=== PATIENT | female | born 1955 | race African-American/Black ===

== ENCOUNTER 2019-01-11 08:21 | Emergency (ER) | payer OTHER ==
--- OUTSIDE RECORDS SUMMARY | 2019-01-11 08:48 | XMS REPORT ---
:1955 [facility] Address [address] [place] [address] Care Team Providers Name Role Phone Unavailable Unavailable Unavailable Payers Payer Name Policy Type Policy Number Effective Date Expiration Date Problems This patient has no known problems. Allergies, Adverse Reactions, Alerts Allergy Allergy Status Severity Reaction(s) Onset Inactive Treating Comments Name Type Date Date Clinician No Known DA Active U 2018-07 Allergies -11 00:00:0 0 Medications This patient has no known medications.
--- OUTSIDE RECORDS SUMMARY | 2019-01-11 08:48 | XMS REPORT | Clinical Summary ---
:1955 Author Organization [facility] Address [address] [place] [id number] Care Team Providers Name Role Phone Franki Styles MD Primary Care Provider Unavailable Allergies No Known Allergies Medications Medication Sig Dispensed Refills Start Date End Date Status ALPRAZolam (XANAX) 1 MG TK 1 T PO TID 3 06/16/2016 Active tablet PRA cyclobenzaprine TK 1 T PO BID 0 06/18/2016 Active (FLEXERIL) 5 mg tablet fluticasone (FLONASE) 50 SPRAY 1 SPRAY 2 06/08/2016 Active mcg/actuation nasal IEN BID spray gabapentin (NEURONTIN) TK 1 C PO TID 0 06/18/2016 Active 400 mg capsule HYDROcodone-acetaminophe TK 1 T PO TID 0 06/18/2016 Active n (NORCO) 10-325 mg per tablet losartan (COZAAR) 100 MG TK 1 T PO QD 1 06/16/2016 Active tablet multivitamin capsule Take 1 capsule 0 Active by mouth daily. atorvastatin (LIPITOR) Take 20 mg by 0 Active 20 MG tablet mouth daily. Default OP ins Active Problems No known active problems Family History Medical History Relation Name Comments Hypertension Sister Relation Name Status Comments Sister Social History Tobacco Use Types Packs/Day Years Used Date Never Smoker Alcohol Use Drinks/Week oz/Week Comments Yes 1 Cans of beer 0.6 occasionally Sex Assigned at Date Recorded Not on file Job Start Date Occupation Industry Not on file Not on file Not on file Travel History Travel Start Travel End No recent travel history available. Last Filed Vital Signs Not on file Plan of Treatment Health Maintenance Due Date Last Done Comments BREAST CANCER SCREENING 2005 COLONOSCOPY SCREENING 2005 SHINGLES VACCINES (#1) 2005 INFLUENZA VACCINE 02/03/2019 Results Not on fileafter 01/10/2018 Insurance Payer Benefit Plan / Subscriber ID Effective Dates Phone Address Type Group UHC MEDICARE [employer] xxxxxxxxx 2016-Present HMO MEDICARE MEDICAID MEDICAID xxxxxxxxx 2011-Present Medicaid Advance Directives Patient has advance care planning documents on file. For more information, please contact:Thee Hunter[address] [place] [address]
--- NOTE | 2019-01-11 11:00 | EDPHYS ---
Physician Documentation [facility] Name: Sachi Roberts Age: 63 yrs Sex: Female : 1955 Arrival Date: 01/11/2019 Time: 08:23 Bed 14 Private MD: Franki Styles E ED Physician Nathaniel Haskins HPI: 01/11 08:35 This 63 yrs old Black Female presents to ER via Ambulatory with complaints of Foot cp Problem. 08:35 The patient's rash thought to be caused by an unknown cause. The rash is located on the cp right foot and left foot. Onset: The symptoms/episode began/occurred 3 week(s) ago. Associated signs and symptoms: Pertinent positives: itching, Pertinent negatives: fever. Severity of symptoms: in the emergency department the symptoms are worse. Historical: - Allergies: 08:29 No Known Allergies; rb1 - Home Meds: 08:29 Alprazolam Oral [Active]; hydrocodone-acetaminophen 7.5-325 mg Oral tab 1 tab every 6 rb1 hours [Active]; gabapentin 300 mg oral cap 1 cap 3 times per day [Active]; Fluconazole Oral [Active]; - PMHx: 08:29 Anxiety; Hypertension; chronic back pain; rb1 - PSHx: 08:29 Bilateral knee replacements; rb1 - Immunization history:: Adult Immunizations up to date. - Social history:: Smoking status: Patient/guardian denies using tobacco. - Ebola Screening: : Patient negative for fever greater than or equal to 101.5 degrees Fahrenheit, and additional compatible Ebola Virus Disease symptoms. ROS: 08:40 Skin: Positive for rash, of the right foot and left foot. cp 08:40 Constitutional: Negative for body aches, chills, fever. cp 08:40 ENT: Negative for drainage from ear(s), ear pain, sore throat, difficulty swallowing, difficulty handling secretions. 08:40 Respiratory: Negative for cough. 08:40 Abdomen/GI: Negative for abdominal pain. 08:40 All other systems are negative. Exam: 08:45 Constitutional: The patient appears in no acute distress, alert, awake, non-toxic, well cp developed, well nourished. 08:45 Head/Face: Normocephalic, atraumatic. cp 08:45 Skin: cellulitis, is not appreciated, rash a moderate rash is noted, rash can be described as plaque-like, scale, on the right foot and left foot. Vital Signs: 08:29 BP 146 / 73; Pulse 90; Resp 19; Temp 98.3(O); Pulse Ox 100% on R/A; Weight 112.04 kg rb1 (R); Height 5 ft. 4 in. (162.56 cm) (R); Pain 4/10; 08:29 Body Mass Index 42.40 (112.04 kg, 162.56 cm) rb1 MDM: 08:31 Patient medically screened. [facility] 08:50 Differential diagnosis: impetigo, cellulitis, tinea. 08:51 Data reviewed: vital signs, nurses notes. 08:51 Counseling: I had a detailed discussion with the patient and/or guardian regarding: the cp historical points, exam findings, and any diagnostic results supporting the discharge/admit diagnosis, to return to the emergency department if symptoms worsen or persist or if there are any questions or concerns that arise at home. Administered Medications: No medications were administered Disposition: 09:15 Chart complete. cp Disposition: 01/11/19 08:52 Discharged to Home. Impression: Tinea pedis. - Condition is Stable. - Discharge Instructions: Athlete's Foot. - Prescriptions for Clotrimazole 1 % Topical Cream - Apply to affected area 1 application by TOPICAL route every 12 hours; 30 gram. Fluconazole 200 mg Oral Tablet - take 1 tablet by ORAL route once wkly for 5 days; 5 tablet. - Medication Reconciliation Form, Thank You Letter, Antibiotic Education, Prescription Opioid Use form. - Follow up: Franki Styles MD; When: 1 week; Reason: no improvement. Follow up: Franki Styles MD; When: 10 - 14 days; Reason: no improvement. - Problem is new. - Symptoms are unchanged. Addendum: 01/12/2019 16:29 Co-signature as Attending Physician, Nathaniel Haskins MD I agree with the assessment and c vasquez plan of care. Signatures: Nathaniel Haskins MD MD cha Page, Corey, PA PA cp Margot Dewey, PHILIP RN rb1 Corrections: (The following items were deleted from the chart) 01/11 08:55 08:52 01/11/2019 08:52 Discharged to Home. Impression: Tinea pedis. Condition is cp Stable. Forms are Medication Reconciliation Form, Thank You Letter, Antibiotic Education, Prescription Opioid Use. Follow up: Franki Styles; When: 1 week; Reason: no improvement. Problem is new. Symptoms are unchanged. cp 09:01 08:55 01/11/2019 08:52 Discharged to Home. Impression: Tinea pedis. Condition is rb1 Stable. Discharge Instructions: Athlete's Foot. Prescriptions for Clotrimazole 1 % Topical Cream - Apply to affected area 1 application by TOPICAL route every 12 hours; 30 gram, Fluconazole 200 mg Oral Tablet - take 1 tablet by ORAL route once wkly for 5 days; 5 tablet. and Forms are Medication Reconciliation Form, Thank You Letter, Antibiotic Education, Prescription Opioid Use. Follow up: Franki Styles; When: 10 - 14 days; Reason: no improvement. Problem is new. Symptoms are unchanged. cp
--- NOTE | 2019-01-11 11:01 | ER ---
Nurse's Notes [facility] Name: Sachi Roberts Age: 63 yrs Sex: Female : 1955 Arrival Date: 01/11/2019 Time: 08:23 Bed 14 Private MD: Franki Styles E Diagnosis: Tinea pedis Presentation: 01/11 08:29 Presenting complaint: Patient states: Rash on bilateral feet, burning and itching x 3 rb1 weeks. 08:29 Method Of Arrival: Ambulatory rb1 08:29 Transition of care: patient was not received from another setting of care. Onset of rb1 symptoms is unknown. Risk Assessment: Do you want to hurt yourself or someone else? Patient reports no desire to harm self or others. Initial Sepsis Screen: Does the patient meet any 2 criteria? No. Patient's initial sepsis screen is negative. Does the patient have a suspected source of infection? No. Patient's initial sepsis screen is negative. Care prior to arrival: None. 08:29 Acuity: DIDIER 3 rb1 Triage Assessment: 08:29 General: Appears in no apparent distress. comfortable, Behavior is calm, cooperative. rb1 Pain: Complains of pain in bilateral feet Pain currently is 4 out of 10 on a pain scale. Quality of pain is described as burning, Pain began x 3 weeks. Neuro: Level of Consciousness is awake, alert, obeys commands, Oriented to person, place, time, situation. Cardiovascular: Capillary refill < 3 seconds is brisk in bilateral fingers. Respiratory: Airway is patent Respiratory effort is even, unlabored, Respiratory pattern is regular, symmetrical. GI: No signs and/or symptoms were reported involving the gastrointestinal system. : No signs and/or symptoms were reported regarding the genitourinary system. Derm: Rash noted that is itchy, on bilateral feet. Musculoskeletal: Range of motion: intact in all extremities, Swelling present in bilateral feet. Historical: - Allergies: : No Known Allergies; rb1 - Home Meds: : Alprazolam Oral [Active]; hydrocodone-acetaminophen 7.5-325 mg Oral tab 1 tab every 6 rb1 hours [Active]; gabapentin 300 mg oral cap 1 cap 3 times per day [Active]; Fluconazole Oral [Active]; - PMHx: 08: Anxiety; Hypertension; chronic back pain; rb1 - PSHx: 08:29 Bilateral knee replacements; rb1 - Immunization history:: Adult Immunizations up to date. - Social history:: Smoking status: Patient/guardian denies using tobacco. - Ebola Screening: : Patient negative for fever greater than or equal to 101.5 degrees Fahrenheit, and additional compatible Ebola Virus Disease symptoms. Screenin:29 Abuse screen: Denies threats or abuse. Nutritional screening: No deficits noted. rb1 Tuberculosis screening: No symptoms or risk factors identified. Fall Risk No fall in past 12 months (0 pts). Secondary diagnosis (15 points) impaired mobility, No IV (0 pts). Ambulatory Aid- Crutches/Cane/Walker (15 pts). Gait- Impaired (20 pts.). Mental Status- Oriented to own ability (0 pts). Total Starr Fall Scale indicates High Risk Score (45 or more points). Fall prevention measures have been instituted. Side Rails Up X 2 Placed Close to Nursing Station 1:1 Attendant Assigned Frequent Obs/Assessments Occuring As available patient and family educated on Fall Prevention Program and Strategies. Vital Signs: 08:29 BP 146 / 73; Pulse 90; Resp 19; Temp 98.3(O); Pulse Ox 100% on R/A; Weight 112.04 kg rb1 (R); Height 5 ft. 4 in. (162.56 cm) (R); Pain 4/10; 08:29 Body Mass Index 42.40 (112.04 kg, 162.56 cm) rb1 ED Course: 08:23 Patient arrived in ED. as 08:24 Franki Styles MD is Private Physician. as 08:29 Nathaniel Byrd PA is PHCP. cp 08:29 Nathaniel Haskins MD is Attending Physician. cp 08:29 Arm band placed on right wrist. rb1 08:29 Patient has correct armband on for positive identification. Bed in low position. Call rb1 light in reach. Side rails up X 1. Pulse ox on. NIBP on. 08:31 Margot Dewey, PHILIP is Primary Nurse. rb1 08:42 Triage completed. rb1 08:52 Franki Styles MD is Referral Physician. cp 08:55 Referral Physician role handed off by Franki Styles MD cp 08:55 Franki Styles MD is Referral Physician. cp 09:00 No provider procedures requiring assistance completed. Patient did not have IV access rb1 during this emergency room visit. Administered Medications: No medications were administered Outcome: :52 Discharge ordered by . priyank 09:00 Discharged to home ambulatory, with cane rb1 :00 Condition: stable 09:00 Discharge instructions given to patient, Instructed on discharge instructions, follow up and referral plans. medication usage, Demonstrated understanding of instructions, follow-up care, medications, Prescriptions given X 2. 09:01 Patient left the ED. rb1 Signatures: Carolina Cuellar Corey, JUANY PA Margot Kimbrough, RN RN rb1
[2019-01-11 13:08] VITALS: BP 146/73; TEMP 98.3; O2SAT 100
== END 2019-01-11 09:01 | disposition home or self-care (01) ==
LOC: ER 08:21
DX: R21 Rash and other nonspecific skin eruption (principal); F41.9 Anxiety disorder, unspecified; I10 Essential (primary) hypertension
CPT/HCPCS: 99283

== ENCOUNTER 2019-01-29 00:53 | Observation (INO) | payer OTHER ==
--- OUTSIDE RECORDS SUMMARY | 2019-01-29 00:55 | XMS REPORT ---
:1955 [facility] Address [address] [place] [address] Care Team Providers Name Role Phone Unavailable [...]
--- OUTSIDE RECORDS SUMMARY | 2019-01-29 00:55 | XMS REPORT | Clinical Summary ---
:1955 Author Organization [facility] Address [address] [place] [id number] Care Team Providers Name Role Phone Franki [...] INFLUENZA VACCINE 02/03/2019 Results Not on fileafter 01/28/2018 Insurance Payer Benefit Plan / Subscriber ID Effective Dates Phone Address Type Group UHC MEDICARE UNITED HE[employer] xxxxxxxxx 2016-Present HMO MEDICARE MEDICAID MEDICAID xxxxxxxxx 2011-Present Medicaid Advance Directives Patient has advance care planning documents on file. For more information, please contact:Thee Hunter[address] [place] [address]
[2019-01-29 02:13] LABS: Absolute Lymphocytes (CBC) 1.1 K/uL (0.7-4.9); Basophils % 0.3 % (0-1.3); Hematocrit 35.7 % (36.0-45.0); Lymphocytes % 7.6 % (15.3-44.8); MPV 10.3 fL (7.6-11.3); Protime INR 1.09; RBC Red Blood Cell Count 3.99 M/uL (3.86-4.86)
[2019-01-29 02:21] LABS: ALT/SGPT 23 U/L (12-78); AST/SGOT 18 U/L (15-37); Albumin 3.5 g/dL (3.4-5.0); Alkaline Phosphatase 122 U/L (45-117); BUN Blood Urea Nitrogen 12 mg/dL (7-18); Bicarbonate 31 mmol/L (21-32); Bilirubin Direct 0.2 mg/dL (0-0.2); Bilirubin Total 0.7 mg/dL (0.2-1.0); Glucose Level 101 mg/dL (74-106); Potassium 3.4 mmol/L (3.5-5.1); Protein, Total 8.2 g/dL (6.4-8.2); Sodium Level 137 mmol/L (136-145)
[2019-01-29] MEDS ORDERED: ONDANSETRON 4 MG/2 ML VIAL ONE (02:22)
[2019-01-29] MEDS ORDERED: NA CHLORIDE 0.9% 1,000 ML ONE (02:22)
[2019-01-29] MEDS ORDERED: MORPHINE 4 MG/ML SYR ONE (02:22)
[2019-01-29] MEDS ORDERED: NA CHLORIDE 0.9% 0 ML ONE (03:22)
[2019-01-29] MEDS ORDERED: Levofloxacin500mg IV 500 MG/100 ML BAG IV ONE (03:22)
[2019-01-29] MEDS ORDERED: WATER FOR INJ,STERILE 20 ML ONE (03:22)
[2019-01-29] MEDS ORDERED: VANCOMYCIN 1 GM/VIAL ONE (03:22)
[2019-01-29] MEDS ORDERED: NA CHLORIDE 0.9% 250 ML ONE (03:23)
--- NOTE | 2019-01-29 03:47 | ER ---
Nurse's Notes [facility] Name: Sachi Roberts Age: 63 yrs Sex: Female : 1955 Arrival Date: 01/29/2019 Time: 00:56 Bed 14 Private MD: Franki Styles E Diagnosis: Cellulitis of left lower limb Presentation: 01/29 01:13 Presenting complaint: Patient states: She has some swelling in her left foot and ankle tr5 and a headache that started about 3 days ago, but today it has been constantly hurting. She had some fungus on both of feet for about 3 weeks now that she is being treated for currently. Transition of care: patient was not received from another setting of care. Onset of symptoms was January 29, 2019. Risk Assessment: Do you want to hurt yourself or someone else? Patient reports no desire to harm self or others. Initial Sepsis Screen: Does the patient meet any 2 criteria? No. Patient's initial sepsis screen is negative. Does the patient have a suspected source of infection? No. Patient's initial sepsis screen is negative. Care prior to arrival: None. 01:13 Method Of Arrival: Wheelchair tr5 01:13 Acuity: DIDIER 3 tr5 Triage Assessment: 01:21 Headache History: The patient has had previous headaches and this one is similar to tr5 previous episodes. General: Appears in no apparent distress. uncomfortable, Behavior is calm, cooperative. General:. General: Appears. Pain: Complains of pain in forehead and left leg Pain currently is 8 out of 10 on a pain scale. Pain began 2-3 days ago. Also complains of inability to perform activities of daily living. EENT: No signs and/or symptoms were reported regarding the EENT system. Neuro: Level of Consciousness is awake, alert, Oriented to person, place, time, Frit Maker are equal bilaterally Moves all extremities. Cardiovascular: Reports None Heart tones present Bruits absent. Respiratory: Airway is patent Trachea midline Respiratory effort is even, unlabored, Respiratory pattern is regular, symmetrical, Breath sounds are clear bilaterally. GI: No signs and/or symptoms were reported involving the gastrointestinal system. : No signs and/or symptoms were reported regarding the genitourinary system. Derm: Skin is intact, Skin is dry, Skin temperature is warm. Derm:. Historical: - Home Meds: 01:21 Alprazolam Oral [Active]; fluconazole Oral [Active]; gabapentin 300 mg Oral cap 1 cap 3 tr5 times per day [Active]; hydrocodone-acetaminophen 7.5-325 mg Oral tab 1 tab every 6 hours [Active]; - PMHx: 01:21 Anxiety; Hypertension; chronic back pain; Cellulitis; tr5 - PSHx: 01: Gastric Bypass; Knee surgery; Skin Graft; tr5 - Immunization history:: Adult Immunizations up to date. - Social history:: Smoking status: Patient/guardian denies using tobacco, the patient reports quitting approximately 20 years ago. - Ebola Screening: : No symptoms or risks identified at this time. Screenin: Abuse screen: Denies threats or abuse. Nutritional screening: No deficits noted. tr5 Tuberculosis screening: No symptoms or risk factors identified. Fall Risk None identified. Assessment: :28 Reassessment: See triage. Pain: Complains of pain in forehead. Neuro:. Cardiovascular: tr5 Edema pitting to left foot, left toes, right foot and right toes. 02:43 Reassessment: Patient appears in no apparent distress at this time. Patient and/or tr5 family updated on plan of care and expected duration. Pain level reassessed. Patient is alert, oriented x 3, equal unlabored respirations, skin warm/dry/pink. 03:30 Reassessment: Patient appears in no apparent distress at this time. Patient and/or tr5 family updated on plan of care and expected duration. Pain level reassessed. Patient is alert, oriented x 3, equal unlabored respirations, skin warm/dry/pink. 03:38 Reassessment: Dr. Jones at pt's bedside explaining to pt need for admission. Pt tr5 verbalized understanding. 04:01 Reassessment: Report given to Simran PALACIOS. tr5 04:07 Reassessment: Pt AAOX4 with no signs/symptoms of distress. Pt has a 20 G IV R AC that tr5 is clean dry and intact. Pt's edema to left foot remains but patient reports improvement of pain. Pt has family at bedside. Pt and family notified of pt's room assignment and verbalized understanding of need for admission. Vital Signs: 01:27 BP 139 / 66; Pulse 100; Resp 16; Temp 98.8(O); Pulse Ox 99% on R/A; tr5 02:43 BP 110 / 56; Pulse 102; Resp 21; Pulse Ox 99% on R/A; tr5 03:31 BP 133 / 58; Pulse 73; Resp 16; Pulse Ox 99% on R/A; tr5 04:03 BP 114 / 67; Pulse 86; Resp 16; Temp 98.4(O); Pulse Ox 100% on R/A; tr5 ED Course: 00:56 Patient arrived in ED. mr 00:56 Franki Styles MD is Private Physician. mr 00:58 Kenny Velásquez, PHILIP is Primary Nurse. tr5 01:08 Oscar Comer, KISHORE is PHCP. pm1 01:08 Homero Moore MD is Attending Physician. pm1 01:16 Triage completed. tr5 01:27 Arm band placed on. tr5 01:30 Patient has correct armband on for positive identification. Placed in gown. Bed in low tr5 position. Call light in reach. child monitor on. Pulse ox on. NIBP on. Door closed. Noise minimized. Warm blanket given. Head of bed. 01:55 Inserted saline lock: 20 gauge in right antecubital area, using aseptic technique. rr5 Blood collected. 02:45 Patient taken to ultrasound. via wheelchair. tr5 03:14 Extremity Venous Uni Ltd US In Process Unspecified. EDMS 03:30 Awaiting bed assignment. tr5 03:46 Jonny Jones DO is Hospitalizing Provider. pm1 03:51 No provider procedures requiring assistance completed. Patient admitted, IV remains in tr5 place. 04:06 transfer transportation to receiving facility. tr5 Administered Medications: 02:05 Drug: NS 0.9% 1000 ml Route: IV; Rate: 1000 ml; Site: right antecubital; rr5 02:07 Drug: Zofran 4 mg Route: IVP; Site: right antecubital; rr5 03:00 Follow up: Response: Nausea is decreased tr5 02:09 Drug: morphine 4 mg Route: IVP; Site: right antecubital; rr5 03:00 Follow up: Response: Pain is decreased tr5 03:29 Drug: LevaQUIN 500 mg Volume: 100 ml; Route: IVPB; Infused Over: 60 mins; Site: right tr5 antecubital; 03:41 Drug: vancoMYCIN 1 grams Route: IVPB; Infused Over: 2 hrs; Site: right antecubital; tr5 Point of Care Testing: Blood Glucose: 02:45 Blood Glucose: 123 mg/dL; tr5 Ranges: Outcome: 03:38 Instructed on the need for admit. tr5 03:47 Decision to Hospitalize by Provider. pm1 03:51 Condition: stable tr5 04:18 Patient left the ED. tr5 Signatures: Dispatcher [employer] EDOR KellyAleyda shine SouleymaneOscar, ANIMAL GENETICIST ANIMAL GENETICIST pm1 Emily Hansen jb5 Feliberto Prater, RN RN rr5 Kenny Velásquez RN RN tr5 Corrections: (The following items were deleted from the chart) 02:54 02:52 Safety checks: Door open/sign placed on door: yes. Sitter present: Other: [address] employee present with patient jb5
--- NOTE | 2019-01-29 03:48 | EDPHYS ---
Physician Documentation [facility] Name: Sachi Roberts Age: 63 yrs Sex: Female : 1955 Arrival Date: 01/29/2019 Time: 00:56 Bed 14 Private MD: Franki Styles E ED Physician Homero Moore HPI: 01/29 01:35 This 63 yrs old Black Female presents to ER via Wheelchair with complaints of Left leg pm1 swelling and pain. 01:35 The patient presents with pain, swelling. The complaints affect the circumferential pm1 left lower leg proximal to left ankle. Context: resulted from an unknown cause, Has had prior cellulitis to same area in the past. Onset: The symptoms/episode began/occurred 3 day(s) ago. Modifying factors: The symptoms are alleviated by nothing. the symptoms are aggravated by weight bearing. Treatment prior to arrival includes: no previous treatment. Severity of symptoms: in the emergency department the symptoms are actually worse. The patient has been recently seen at the [facility] Emergency Department, 01/11/2019 for tinea pedis. Patient has been treating with medication prescribed in the ER. Past three days redness swelling and pain to left lower leg. Historical: - Home Meds: 01:21 Alprazolam Oral [Active]; fluconazole Oral [Active]; gabapentin 300 mg Oral cap 1 cap 3 tr5 times per day [Active]; hydrocodone-acetaminophen 7.5-325 mg Oral tab 1 tab every 6 hours [Active]; - PMHx: 01:21 Anxiety; Hypertension; chronic back pain; Cellulitis; tr5 - PSHx: 01:21 Gastric Bypass; Knee surgery; Skin Graft; tr5 - Immunization history:: Adult Immunizations up to date. - Social history:: Smoking status: Patient/guardian denies using tobacco, the patient reports quitting approximately 20 years ago. - Ebola Screening: : No symptoms or risks identified at this time. ROS: 01:35 Constitutional: Negative for fever, chills, and weight loss, Eyes: Negative for injury, pm1 pain, redness, and discharge, ENT: Negative for injury, pain, and discharge, Neck: Negative for injury, pain, and swelling, Cardiovascular: Negative for chest pain, palpitations, and edema, Respiratory: Negative for shortness of breath, cough, wheezing, and pleuritic chest pain, Abdomen/GI: Negative for abdominal pain, nausea, vomiting, diarrhea, and constipation, Back: Negative for injury and pain, : Negative for injury, bleeding, discharge, and swelling. 01:35 Neuro: Negative for headache, weakness, numbness, tingling, and seizure. 01:35 MS/extremity: Positive for erythema, pain, swelling, of the distal aspect of left lower leg. 01:35 Skin: Positive for cellulitis, of the distal aspect of left lower leg. Exam: 01:35 Constitutional: This is a well developed, well nourished patient who is awake, alert, pm1 and in no acute distress. Head/Face: Normocephalic, atraumatic. Neck: Trachea midline, no thyromegaly or masses palpated, and no cervical lymphadenopathy. Supple, full range of motion without nuchal rigidity, or vertebral point tenderness. No Meningismus. Chest/axilla: Normal chest wall appearance and motion. Nontender with no deformity. No lesions are appreciated. Cardiovascular: Regular rate and rhythm with a normal S1 and S2. No gallops, murmurs, or rubs. Normal PMI, no JVD. No pulse deficits. Respiratory: Lungs have equal breath sounds bilaterally, clear to auscultation and percussion. No rales, rhonchi or wheezes noted. No increased work of breathing, no retractions or nasal flaring. Abdomen/GI: Soft, non-tender, with normal bowel sounds. No distension or tympany. No guarding or rebound. No evidence of tenderness throughout. Back: No spinal tenderness. No costovertebral tenderness. Full range of motion. 01:35 Skin: Appearance: normal except for affected area, cellulitis, well demarcated, on the circumferential to distal aspect of left lower leg. Vital Signs: 01:27 BP 139 / 66; Pulse 100; Resp 16; Temp 98.8(O); Pulse Ox 99% on R/A; tr5 02:43 BP 110 / 56; Pulse 102; Resp 21; Pulse Ox 99% on R/A; tr5 03:31 BP 133 / 58; Pulse 73; Resp 16; Pulse Ox 99% on R/A; tr5 04:03 BP 114 / 67; Pulse 86; Resp 16; Temp 98.4(O); Pulse Ox 100% on R/A; tr5 MDM: 01:19 Patient medically screened. pm1 03:44 Data reviewed: vital signs. Data interpreted: Pulse oximetry: on room air is 99 %. pm1 Interpretation: normal. Counseling: I had a detailed discussion with the patient and/or guardian regarding: the historical points, exam findings, and any diagnostic results supporting the discharge/admit diagnosis, lab results, radiology results, the need for further work-up and treatment in the hospital. 03:44 Physician consultation: Jonny Jones DO was called at 03:25, regarding admission, pm1 patient's condition, in the emergency department to see patient at 03:30. 01/29 01:29 Order name: Basic Metabolic Panel; Complete Time: 02:28 pm01/29 01:29 Order name: Blood Culture Adult (2) pm01/29 01:29 Order name: CBC with Diff; Complete Time: 02:28 pm01/29 01:29 Order name: Lactate; Complete Time: 02:28 pm01/29 01:29 Order name: LFT's; Complete Time: 02:28 pm01/29 01:29 Order name: Procalcitonin; Complete Time: 02:49 pm01/29 01:27 Order name: Extremity Venous Uni Ltd US pm01/29 01:29 Order name: Protime (+inr); Complete Time: 02:28 pm01/29 01:29 Order name: Ptt, Activated; Complete Time: 02:28 pm01/29 01:29 Order name: Accucheck; Complete Time: 02:50 pm01/29 01:29 Order name: Labs collected and sent; Complete Time: 01:59 pm1 Administered Medications: 02:05 Drug: NS 0.9% 1000 ml Route: IV; Rate: 1000 ml; Site: right antecubital; rr5 02:07 Drug: Zofran 4 mg Route: IVP; Site: right antecubital; rr5 03:00 Follow up: Response: Nausea is decreased tr5 02:09 Drug: morphine 4 mg Route: IVP; Site: right antecubital; rr5 03:00 Follow up: Response: Pain is decreased tr5 03:29 Drug: LevaQUIN 500 mg Volume: 100 ml; Route: IVPB; Infused Over: 60 mins; Site: right tr5 antecubital; 03:41 Drug: vancoMYCIN 1 grams Route: IVPB; Infused Over: 2 hrs; Site: right antecubital; tr5 Point of Care Testing: Blood Glucose: 02:45 Blood Glucose: 123 mg/dL; tr5 Ranges: Critical Glucose Levels:Adult <50 mg/dl or >400 mg/dl <40 mg/dl or >180 mg/dl Disposition: :19 Co-signature as Attending Physician, Homero Moore MD. rn Disposition: 01/29/19 03:47 Hospitalization ordered by Jonny Jones for Inpatient Admission. Preliminary diagnosis is Cellulitis of left lower limb. - Bed requested for Telemetry/MedSurg (Inpatient). - Status is Inpatient Admission. tr5 - Condition is Stable. - Problem is new. - Symptoms have improved. UTI on Admission? No Signatures: Dispatcher [employer] EDMS Homero Moore MD MD rn Garcia, Cindy, RN RN cg Oscar Comer, KISHORE ENGINE TURNER pm1 Feliberto Prater RN RN rr5 Kenny Velásquez RN RN tr5 Corrections: (The following items were deleted from the chart) 03:47 03:47 Hospitalization Ordered by Jonny Jones DO for Inpatient Admission. Preliminary cg diagnosis is Cellulitis of left lower limb. Bed requested for Telemetry/MedSurg (Inpatient). Status is Inpatient Admission. Condition is Stable. Problem is new. Symptoms have improved. UTI on Admission? No. pm1 04:18 03:47 01/29/2019 03:47 Hospitalization Ordered by Jonny Jones DO for Inpatient tr5 Admission. Preliminary diagnosis is Cellulitis of left lower limb. Bed requested for Telemetry/MedSurg (Inpatient). Status is Inpatient Admission. Condition is Stable. Problem is new. Symptoms have improved. UTI on Admission? No. cg
--- NOTE | 2019-01-29 03:56 | P.HP ---
Certification for Inpatient Patient admitted to: Inpatient With expected LOS: >2 Midnights Patient will require the following post-hospital care: None Practitioner: I am a practitioner with admitting privileges, knowledge of patient current condition, hospital course, and medical plan of care. Services: Services provided to patient in accordance with Admission requirements found in Title 42 Section 412.3 of the Code of Federal Regulations Patient History Date of Service: 01/29/19 Primary Care Provider: Dr. Styles Reason for admission: Left lower extremity pain, swelling and erythema History of Present Illness: 63-year-old female presented to the emergency room with left lower extremity swelling, pain and erythema. Patient with history of hypertension, hyperlipidemia, depression, chronic pain. Patient also has history of left lower extremity cellulitis with prior skin graft to the area. Patient reported left lower extremity pain, swelling and erythema over the past several days. This has been getting worse. This is similar to prior cellulitis. She has been treating herself with oral antifungal agents. This is not improved. She came to the ER for further evaluation. She denied any fever, chills. No significant nausea or vomiting. In the ER patient evaluated. White count elevated at 14.3, hemoglobin 11.9. Sodium 137, potassium 3.4. GFR greater than 90. Pro calcitonin elevated at 0.93 with a lactic acid that was normal. Left lower extremity Doppler was negative for DVT. Patient was admitted for further evaluation and treatment. When I saw the patient in the ER, she appeared comfortable. Pain improved. Patient had reported some difficulty walking due to the pain to the left lower extremity. Allergies No Known Drug Allergies Allergy (Unverified 10/20/14 01:00) Unknown Home medications list reviewed: Yes Home Medications: Biotin 5 mg PO DAILY 03/15/12 Calcium Carbonate/Vitamin D3 [Calcium 500 + D Tablet] 1 each PO DAILY 03/15/12 Cyanocobalamin [Vitamin B-12*] 1,000 mcg PO DAILY 03/15/12 Hydrocodone Bit/Acetaminophen [Hydrocodon-Acetaminophn 10-650] 1 each PO PRN PRN 03/15/12 [place]-3/Dha/Epa/Fish Oil [Fish Oil 1,000 mg Softgel] 1 each PO DAILY 03/15/12 ALPRAZolam [Xanax*] 0.5 tab PO BID 01/16/14 ALPRAZolam [Xanax*] 1 tab PO DAILY AFTER SUPPER 01/16/14 Gabapentin [Neurontin] 0.5 tab PO TID 01/16/14 Lisinopril [Prinivil*] 1 tab PO DAILY WITH BREAKFAST 01/16/14 Venlafaxine HCl [Effexor*] 1 tab PO DAILY 01/16/14 - Past Medical/Surgical History Diabetic: No -: Hypertension -: Hyperlipidemia -: Depression with anxiety -: Chronic pain -: gastric bypass 2005 -: skingraft to left leg 20 yrs ago Psychosocial/ Personal History: Patient is single. - Family History Family History: Reviewed- Non-Contributory - Social History Smoking Status: Former smoker Alcohol use: Yes CD- Drugs: No Caffeine use: Yes Place of Residence: Home Review of Systems General: As per HPI Eyes: Unremarkable ENT: Unremarkable Respiratory: Unremarkable Cardiovascular: Unremarkable Gastrointestinal: Unremarkable Genitourinary: Unremarkable Musculoskeletal: Foot Pain, Pedal edema, As per HPI Integumentary: As per HPI Neurological: Unremarkable Lymphatics: Unremarkable Physical Examination - Physical Exam General: Alert, In no apparent distress, Oriented x3, Cooperative HEENT: Atraumatic, Normocephalic, PERRLA, Mucous membr. moist/pink Neck: Supple, No Thyromegaly Respiratory: Clear to auscultation bilaterally, Normal air movement Cardiovascular: Normal pulses, Regular rate/rhythm Gastrointestinal: Normal bowel sounds, Soft and benign, Non-distended, No tenderness, No masses, No rebound, No guarding Musculoskeletal: Other (Circumferential pain, erythema and swelling to the left lower extremity primarily just above the ankle region to the mid calf region on the left side. Prior scar to the anterior left lower extremity mid away. No exudate noted. Mild scaling to the bottom of the feet.) Integumentary: Other (As above) Neurological: Normal speech, Normal strength at 5/5 x4 extr, Normal tone, Normal affect - Studies Laboratory Data (last 24 hrs) 01/29/19 01:55: PT 12.8 H, INR 1.09, APTT 34.5 01/29/19 01:55: WBC 14.3 H, Hgb 11.9 L, Hct 35.7 L, Plt Count 207 01/29/19 01:55: Sodium 137, Potassium 3.4 L, BUN 12, Creatinine 0.76, Glucose 101, Total Bilirubin 0.7, AST 18, ALT 23, Alkaline Phosphatase 122 H Assessment and Plan - Plan Impression: Left lower extremity cellulitis with prior history of cellulitis and skin graft Hypertension Hyperlipidemia Chronic pain Depression with anxiety Plan: Left lower extremity cellulitis with prior history of cellulitis and skin graft : Patient be admitted for further evaluation and treatment. Will start IV vancomycin and cefepime. Pharmacy to monitor and adjust medication. Will elevate leg when sitting or lying. Will provide medication for pain as needed. Will have physical therapy assess ambulation as she is a fall risk. Will apply Bactroban to the area. Will provide DVT prophylaxis-Lovenox. Anticipate discharge in the next 2-3 days with clinical improvement. Hypertension: Will continue with her medication of Norvasc 5 mg daily and hydrochlorothiazide 12.5 mg daily. Will adjust accordingly. Hyperlipidemia: Will continue with her medication of Zocor 20 mg daily. Chronic pain: Patient takes chronic pain medication including gabapentin 300 mg 1 pill 3 times a day and [place] 7.5 mg 3 times a day as needed for pain. Will restart medication. Depression with anxiety: Patient takes benzodiazepine medication as needed. Will provide medication Xanax as needed for anxiety. Hypokalemia: Will provide electrolyte replacement. Will monitor closely. Likely related to her use of hydrochlorothiazide. Patient may need to increase potassium in her daily diet. Discharge Plan: Home Plan to discharge in: 72 Hours - Advance Directives Does patient have a Living Will: No Does patient have a Durable POA for Healthcare: No - Code Status/Comfort Care Code Status Assessed: Yes (Patient is full code) Time Spent Managing Pts Care (In Minutes): 55
[2019-01-29] MEDS ORDERED: ACETAMINOPHEN 500 MG TAB PO PRN (04:54)
[2019-01-29] MEDS ORDERED: ONDANSETRON 4 MG/2 ML VIAL IV PRN (04:54)
[2019-01-29] MEDS ORDERED: POTASSIUM CL SA 10 MEQ TAB PO ONE (04:54)
[2019-01-29 05:30] VITALS: BMI 41.1
[2019-01-29] MEDS: HYDROCODONE/APAP 7.5/325 MG TAB PO PRN ×3 (06:23→20:27)
[2019-01-29 06:40] LABS: Urine Appearance CLEAR; Urine Bilirubin NEGATIVE (NEG); Urine Blood NEGATIVE (NEG); Urine Color YELLOW; Urine Glucose NEGATIVE (NEG); Urine Microscopic Reflex NO UMIC; Urine Protein NEGATIVE (NEG); Urine Specific Gravity <=1.005 (1.005-1.030); Urine pH 6.5 (5.0-7.0)
[2019-01-29] MEDS ORDERED: VANCOMYCIN/NS 1 gm 1 GM/250 ML BAG IV ONE (07:15)
[2019-01-29] MEDS: CEFEPIME 1 GM in WATER FOR INJ,STERILE 10 ML IV SCH ×2 (08:58→20:27)
[2019-01-29] MEDS: hydroCHLOROthiazide 12.5 MG CAP PO SCH (08:59)
[2019-01-29] MEDS ORDERED: CEFEPIME 1 GM/VIAL IV SCH (09:00)
[2019-01-29] MEDS ORDERED: VANCOMYCIN 1 GM in NA CHLORIDE 0.9% 500 ML IVPB SCH (09:00)
[2019-01-29] MEDS: AMLODIPINE 5 MG TAB PO SCH (09:01)
[2019-01-29] MEDS: ENOXAPARIN 40 MG/0.4 ML SQ SCH (09:02)
[2019-01-29] MEDS: GABAPENTIN 300 MG CAP PO SCH ×3 (09:02→20:28)
[2019-01-29] MEDS: MUPIROCIN 2% OINT 22GM TUBE TOP SCH ×2 (09:05→20:32)
[2019-01-29] MEDS: FLUTICASONE 50MCG NASAL SPRAY NAS SCH ×2 (09:05→20:31)
--- NOTE | 2019-01-29 09:45 | RAD REPORT ---
EXAM DESCRIPTION: USExtremity Venous Uni Ltd01/29/2019 3:13 am CLINICAL HISTORY: left leg pain and swelling. COMPARISON: None. FINDINGS: Left common femoral, superficial femoral, popliteal and posterior tibial veins are compre ssible and demonstrate augmentation. Doppler demonstrates good flow. 3.1 centimeter complex Reyes's cyst Mildly inguinal lymphadenopathy may be reactive in nature and can be monitored on subsequent exam in 3 months to assess stability IMPRESSION: No evidence of deep venous thrombosis involving the left lower extremity. 3 x 1 centimeter Reyes's cyst
[2019-01-29] MEDS: CLOTRIMAZOLE 1% CREAM 15 GM TOP SCH ×2 (11:48→20:34)
--- NOTE | 2019-01-29 11:50 | P.PN ---
Subjective Date of Service: 01/29/19 ( hospitalist) Primary Care Provider: Dr. Styles Chief Complaint: Left lower extremity pain, swelling and erythema Patient admitted with acute onset of left leg cellulitis in addition she has fungus infection involving both her feet was seen by a primary care physician and was prescribed anti fungal pickle ointment with no relief recently was also prescribed a topical steroid still has some pain in the left leg Review of Systems General: Weakness Musculoskeletal: As per HPI Physical Examination - Vital Signs Temperature: 97 F Blood Pressure: 111/51 Pulse: 91 Respirations: 18 Pulse Ox (%): 93 - Physical Exam General: Alert, Oriented x3, Mild distress Respiratory: Clear to auscultation bilaterally Cardiovascular: Edema (Left leg is very swollen she has patchy changes on both her feet suggestive of fungal infection) Gastrointestinal: Normal bowel sounds, Soft and benign - Studies Laboratory Data (last 24 hrs) 01/29/19 01:55: PT 12.8 H, INR 1.09, APTT 34.5 01/29/19 01:55: WBC 14.3 H, Hgb 11.9 L, Hct 35.7 L, Plt Count 207 01/29/19 01:55: Sodium 137, Potassium 3.4 L, BUN 12, Creatinine 0.76, Glucose 101, Total Bilirubin 0.7, AST 18, ALT 23, Alkaline Phosphatase 122 H Assessment & Plan - Problems (Diagnosis) (1) Cellulitis Current Visit: Yes Status: Acute Plan: Patient admitted with a left lower lower extremity cellulitis continue with IV antibiotics chores are chemistries reviewed white count is mildly elevated Qualifiers: Site of cellulitis of extremity: lower extremity Laterality: left (2) Fungal infection of foot Current Visit: Yes Status: Acute Plan: Patient has fungal infections of both her soles of her feet complains of soreness and pruritus no relief topical antifungals medication Consul podiatry Qualifiers: Laterality: bilateral Qualified Code(s): B35.3 - Tinea pedis
--- NOTE | 2019-01-29 12:56 | P.CNS ---
Date of Consult: 01/29/19 Primary Care Provider: Dr. Styles Chief Complaint: Left lower extremity pain, swelling and erythema History of Present Illness: Patient has been treated by Dr. Styles for tinea pedis utilizing clotrimazole cream and what she thinks is Diflucan without resolution Allergies No Known Drug Allergies Allergy (Verified 01/29/19 08:58) Unknown Home Medications: Biotin 5 mg PO DAILY 03/15/12 Calcium Carbonate/Vitamin D3 [Calcium 500 + D Tablet] 1 each PO DAILY 03/15/12 Cyanocobalamin [Vitamin B-12*] 1,000 mcg PO DAILY 03/15/12 [place]-3/Dha/Epa/Fish Oil [Fish Oil 1,000 mg Softgel] 1 each PO DAILY 03/15/12 Alprazolam [Xanax] 1 mg PO BID 01/29/19 Amlodipine [Norvasc] 5 mg PO DAILY 01/29/19 Betameth Dip 0.05% [Diprosone 0.05% Cream] 15 appl TOP DAILY 01/29/19 Gabapentin 300 mg PO TID 01/29/19 Hydrocodone/Acetaminophen [[place] 7.5-325 Tablet] 1 each PO TIDP PRN 01/29/19 Lidocaine 5% Patch [Lidoderm 5% Patch] 1 patch TD DAILY 01/29/19 Simvastatin 20 mg PO BEDTIME 01/29/19 - Past Medical/Surgical History Diabetic: No -: Hypertension -: Hyperlipidemia -: Depression with anxiety -: Chronic pain -: gastric bypass 2005 -: skingraft to left leg 20 yrs ago -: knee sx Psychosocial/ Personal History: Patient is single. - Social History Smoking Status: Former smoker Alcohol use: No CD- Drugs: No Caffeine use: Yes Place of Residence: Home Review of Systems 10-point ROS is otherwise unremarkable Physical Examination Temp Pulse Resp BP Pulse Ox 97 F 91 H 18 111/51 L 93 01/29/19 11:50 01/29/19 11:50 01/29/19 11:50 01/29/19 11:50 01/29/19 11:50 General: Alert, In no apparent distress, Oriented x3 Cardiovascular: Normal pulses, Edema (left lower extremity 1+ pitting edema) Capillary refill: <2 Seconds Musculoskeletal: No clubbing, No swelling, No contractures, No erythema, No tenderness, No warmth Integumentary: Rash(es) (pruritic, burning, plaque type rash bilateral medial, lateral and dorsal foot. Nonbullous lesions with fissuring noted.) Neurological: Sensation intact Laboratory Data (last 24 hrs) 01/29/19 01:55: PT 12.8 H, INR 1.09, APTT 34.5 01/29/19 01:55: WBC 14.3 H, Hgb 11.9 L, Hct 35.7 L, Plt Count 207 01/29/19 01:55: Sodium 137, Potassium 3.4 L, BUN 12, Creatinine 0.76, Glucose 101, Total Bilirubin 0.7, AST 18, ALT 23, Alkaline Phosphatase 122 H - Problems (1) Dermatitis of both feet Current Visit: Yes Status: Acute Conclusions/Impression: Due to patient poor response to antifungals and the appearance of the rash I feel that a course of potent topical steroid should be applied to the lesions. Patient is noting that similar lesions are beginning to appear on left hand. She began using a topical steroid one day previous but was seen in the ER and has not had time to allow it to treat the lesions Physician Review: Patient Assessed, Agree with Above Assessment and Plan
[2019-01-29] MEDS: ALPRAZOLAM 0.5 MG TABLET PO PRN ×2 (13:29→20:30)
[2019-01-29] MEDS: FLUOCINONIDE 0.05% CREAM 30GM TOP PRN (13:33)
[2019-01-29] MEDS: ATORVASTATIN 10 MG TAB PO SCH (20:28)
[2019-01-30] MEDS: VANCOMYCIN 2 GM in NA CHLORIDE 0.9% 500 ML IVPB SCH ×2 (02:32→20:26)
[2019-01-30] MEDS: HYDROCODONE/APAP 7.5/325 MG TAB PO PRN ×4 (02:32→20:27)
[2019-01-30 06:27] LABS: Absolute Lymphocytes (CBC) 1.2 K/uL (0.7-4.9); Basophils % 0.3 % (0-1.3); Hematocrit 32.4 % (36.0-45.0); Lymphocytes % 15.9 % (15.3-44.8); MPV 10.1 fL (7.6-11.3); RBC Red Blood Cell Count 3.57 M/uL (3.86-4.86)
[2019-01-30 06:38] LABS: BUN Blood Urea Nitrogen 8 mg/dL (7-18); Bicarbonate 31 mmol/L (21-32); Glucose Level 103 mg/dL (74-106); Magnesium 2.1 mg/dL (1.8-2.4); Potassium 3.5 mmol/L (3.5-5.1); Sodium Level 140 mmol/L (136-145)
[2019-01-30] MEDS: AMLODIPINE 5 MG TAB PO SCH (09:00)
[2019-01-30] MEDS ORDERED: POTASSIUM CL SA 10 MEQ TAB PO ONE (09:00)
[2019-01-30] MEDS: CLOTRIMAZOLE 1% CREAM 15 GM TOP SCH ×2 (09:00→20:29)
[2019-01-30] MEDS: MUPIROCIN 2% OINT 22GM TUBE TOP SCH ×2 (09:08→20:28)
[2019-01-30] MEDS: FLUTICASONE 50MCG NASAL SPRAY NAS SCH ×2 (09:08→20:30)
[2019-01-30] MEDS: ALPRAZOLAM 0.5 MG TABLET PO PRN ×2 (09:09→22:05)
[2019-01-30] MEDS: hydroCHLOROthiazide 12.5 MG CAP PO SCH (09:09)
[2019-01-30] MEDS: GABAPENTIN 300 MG CAP PO SCH ×3 (09:11→20:27)
[2019-01-30] MEDS: CEFEPIME 1 GM in WATER FOR INJ,STERILE 10 ML IV SCH ×2 (09:11→20:26)
[2019-01-30] MEDS: ENOXAPARIN 40 MG/0.4 ML SQ SCH (09:11)
--- NOTE | 2019-01-30 09:18 | P.PN ---
Subjective Date of Service: 01/30/19 (Hospitalist) Primary Care Provider: Dr. Styles Chief Complaint: Left lower extremity pain, swelling and erythema Patient is still complaining of discomfort in her left leg still swollen seen by podiatry possible dermatitis Review of Systems General: Weakness Musculoskeletal: Leg Pain Integumentary: Rash (Rash on both her feet) Physical Examination - Vital Signs Temperature: 97.0 F Blood Pressure: 101/56 Pulse: 83 Respirations: 16 Pulse Ox (%): 95 - Physical Exam General: Alert, Oriented x3 Respiratory: Clear to auscultation bilaterally Cardiovascular: Edema Musculoskeletal: Other (Left leg is still swollen) Assessment & Plan - Problems (Diagnosis) (1) Cellulitis Current Visit: Yes Status: Acute Plan: Patient admitted with cellulitis continue with present antibiotics patient's white count is declining pro calcitonin level was elevated cultures so far negative patient's blood pressure is low will Dc hydrochlorothiazide start on IV fluids Dc Norvasc Qualifiers: Site of cellulitis of extremity: lower extremity Laterality: left (2) Fungal infection of foot Current Visit: Yes Status: Acute Plan: Seen by podiatry continue with topical antifungals and a steroid treatment has also been prescribed Qualifiers: Laterality: bilateral Qualified Code(s): B35.3 - Tinea pedis Physician Review: Patient Assessed, Agree with Above Assessment and Plan
[2019-01-30] MEDS: NA CHLORIDE 0.9% 1,000 ML IV SCH ×2 (10:04→19:41)
[2019-01-30] MEDS: ATORVASTATIN 10 MG TAB PO SCH (20:27)
[2019-01-30] MEDS: FLUOCINONIDE 0.05% CREAM 30GM TOP PRN (20:28)
[2019-01-31] MEDS: NA CHLORIDE 0.9% 1,000 ML IV SCH ×2 (03:49→05:59)
[2019-01-31] MEDS: HYDROCODONE/APAP 7.5/325 MG TAB PO PRN ×3 (05:32→19:41)
[2019-01-31 06:09] LABS: Absolute Lymphocytes (CBC) 1.1 K/uL (0.7-4.9); Basophils % 0.3 % (0-1.3); Hematocrit 32.1 % (36.0-45.0); Lymphocytes % 18.1 % (15.3-44.8); RBC Red Blood Cell Count 3.54 M/uL (3.86-4.86)
[2019-01-31 06:27] LABS: BUN Blood Urea Nitrogen 8 mg/dL (7-18); Bicarbonate 32 mmol/L (21-32); Glucose Level 99 mg/dL (74-106); Magnesium 2.2 mg/dL (1.8-2.4); Potassium 4.3 mmol/L (3.5-5.1); Sodium Level 140 mmol/L (136-145)
[2019-01-31] MEDS: ALPRAZOLAM 0.5 MG TABLET PO PRN ×2 (07:10→20:37)
[2019-01-31] MEDS: CEFEPIME 1 GM in WATER FOR INJ,STERILE 10 ML IV SCH ×2 (08:52→20:37)
[2019-01-31] MEDS: FLUTICASONE 50MCG NASAL SPRAY NAS SCH ×2 (08:53→20:37)
[2019-01-31] MEDS: MUPIROCIN 2% OINT 22GM TUBE TOP SCH ×2 (08:53→20:38)
[2019-01-31] MEDS: TRAMADOL HCL 50 MG TAB PO PRN (08:53)
[2019-01-31] MEDS: GABAPENTIN 300 MG CAP PO SCH ×3 (08:53→20:37)
[2019-01-31] MEDS: ENOXAPARIN 40 MG/0.4 ML SQ SCH (08:53)
[2019-01-31] MEDS: CLOTRIMAZOLE 1% CREAM 15 GM TOP SCH ×2 (08:54→20:38)
[2019-01-31] MEDS: VANCOMYCIN 2 GM in NA CHLORIDE 0.9% 500 ML IVPB SCH (13:28)
--- NOTE | 2019-01-31 15:53 | P.PN ---
Subjective Date of Service: 01/31/19 Primary Care Provider: Dr. Styles Chief Complaint: Left lower extremity pain, swelling and erythema Patient seen and examined at bedside with RN. Chart reviewed. Overnight no complaints to offer. States that her leg is hurting more than before Review of Systems 10-point ROS is otherwise unremarkable Physical Examination - Vital Signs Temperature: 97.9 F Blood Pressure: 129/66 Pulse: 83 Respirations: 18 Pulse Ox (%): 99 - Physical Exam General: Alert, In no apparent distress HEENT: Atraumatic, PERRLA, EOMI Neck: Supple, JVD not distended Respiratory: Clear to auscultation bilaterally, Normal air movement Cardiovascular: Regular rate/rhythm, Normal S1 S2 Gastrointestinal: Normal bowel sounds, No tenderness Musculoskeletal: Swelling, Erythema, Tenderness, Warmth Integumentary: No rashes Neurological: Normal speech, Normal tone, Normal affect Lymphatics: No axilla or inguinal lymphadenopathy - Studies Medications List Reviewed: Yes Assessment And Plan - Current Problems (Diagnosis) (1) Cellulitis Current Visit: Yes Status: Acute Plan: Left-sided lower leg cellulitis. Improving today -podiatry consulted. Appreciated recommendations -continue with IV antibiotics at this time -elevated and wrapped the leg -venous Dopplers negative for any DVT Qualifiers: Site of cellulitis: extremity Site of cellulitis of extremity: lower extremity Laterality: left Qualified Code(s): L03.116 - Cellulitis of left lower limb (2) Fungal infection of foot Current Visit: Yes Status: Chronic Plan: Currently getting treated with topical antifungal Qualifiers: Laterality: bilateral Qualified Code(s): B35.3 - Tinea pedis - Plan Pending clinical improvement at this time Discharge Plan: Home Plan to discharge in: Greater than 2 days - Code Status/Comfort Care Code Status Assessed: Yes Physician Review: Patient Assessed, Agree with Above Assessment and Plan Critical Care: No
[2019-01-31] MEDS: ATORVASTATIN 10 MG TAB PO SCH (20:37)
[2019-02-01] MEDS: HYDROCODONE/APAP 7.5/325 MG TAB PO PRN ×4 (01:42→21:14)
[2019-02-01] MEDS: TRAMADOL HCL 50 MG TAB PO PRN ×2 (05:08→18:17)
[2019-02-01 06:13] LABS: Absolute Lymphocytes (CBC) 1.1 K/uL (0.7-4.9); Hematocrit 34.3 % (36.0-45.0); Lymphocytes % 23.6 % (15.3-44.8)
[2019-02-01 06:37] LABS: BUN Blood Urea Nitrogen 8 mg/dL (7-18); Bicarbonate 29 mmol/L (21-32); Glucose Level 86 mg/dL (74-106); Phosphorus 3.8 mg/dL (2.5-4.9); Potassium 3.8 mmol/L (3.5-5.1); Sodium Level 142 mmol/L (136-145)
[2019-02-01] MEDS ORDERED: POTASSIUM CL SA 10 MEQ TAB PO ONE (07:33)
[2019-02-01] MEDS: VANCOMYCIN 2 GM in NA CHLORIDE 0.9% 500 ML IVPB SCH (08:00)
[2019-02-01] MEDS: ALPRAZOLAM 0.5 MG TABLET PO PRN ×3 (08:09→22:00)
[2019-02-01] MEDS: GABAPENTIN 300 MG CAP PO SCH ×3 (08:13→21:02)
[2019-02-01] MEDS: ENOXAPARIN 40 MG/0.4 ML SQ SCH (08:13)
[2019-02-01] MEDS: CEFEPIME 1 GM in WATER FOR INJ,STERILE 10 ML IV SCH (08:14)
[2019-02-01] MEDS: FLUTICASONE 50MCG NASAL SPRAY NAS SCH ×2 (08:14→21:18)
[2019-02-01] MEDS: MUPIROCIN 2% OINT 22GM TUBE TOP SCH ×2 (08:14→21:19)
[2019-02-01] MEDS: CLOTRIMAZOLE 1% CREAM 15 GM TOP SCH ×2 (08:16→21:00)
--- NOTE | 2019-02-01 12:54 | P.PN ---
Subjective Date of Service: 02/01/19 Primary Care Provider: Dr. Styles Chief Complaint: Left lower extremity pain, swelling and erythema Patient seen and examined at bedside with RN. Chart reviewed. Overnight no complaints to offer. Doing better today but still states not comfortable going home yet. Review of Systems 10-point ROS is otherwise unremarkable Physical Examination - Vital Signs Temperature: 96.5 F Blood Pressure: 118/59 Pulse: 74 Respirations: 14 Pulse Ox (%): 98 - Physical Exam General: Alert, In no apparent distress HEENT: Atraumatic, PERRLA, EOMI Neck: Supple, JVD not distended Respiratory: Clear to auscultation bilaterally, Normal air movement Cardiovascular: Regular rate/rhythm, Normal S1 S2 Gastrointestinal: Normal bowel sounds, No tenderness Musculoskeletal: No tenderness Integumentary: No rashes, Tenderness/swelling, Erythema, Warmth Neurological: Normal speech, Normal tone, Normal affect Lymphatics: No axilla or inguinal lymphadenopathy - Studies Medications List Reviewed: Yes Assessment And Plan - Current Problems (Diagnosis) (1) Cellulitis Current Visit: Yes Status: Acute Plan: Left-sided lower leg cellulitis. Improving today -podiatry consulted. Appreciated recommendations -Switch to PO abx at this time. -elevated and wrapped the leg -venous Dopplers negative for any DVT Qualifiers: Site of cellulitis: extremity Site of cellulitis of extremity: lower extremity Laterality: left Qualified Code(s): L03.116 - Cellulitis of left lower limb (2) Fungal infection of foot Current Visit: Yes Status: Chronic Plan: Currently getting treated with topical antifungal Qualifiers: Laterality: bilateral Qualified Code(s): B35.3 - Tinea pedis - Plan Pending clinical improvement at this time Discharge Plan: Home Plan to discharge in: 48 Hours - Code Status/Comfort Care Code Status Assessed: Yes Critical Care: No
[2019-02-01] MEDS: DOXYCYCLINE 100 MG CAP PO SCH (20:48)
[2019-02-01] MEDS: ATORVASTATIN 10 MG TAB PO SCH (20:49)
[2019-02-02] MEDS: TRAMADOL HCL 50 MG TAB PO PRN (05:22)
[2019-02-02 05:58] LABS: BUN Blood Urea Nitrogen 8 mg/dL (7-18); Bicarbonate 32 mmol/L (21-32); Glucose Level 85 mg/dL (74-106); Magnesium 2.1 mg/dL (1.8-2.4); Potassium 3.9 mmol/L (3.5-5.1); Sodium Level 142 mmol/L (136-145)
[2019-02-02 06:07] LABS: Absolute Lymphocytes (CBC) 1.2 K/uL (0.7-4.9); Basophils % 0.8 % (0-1.3); Hematocrit 33.5 % (36.0-45.0); Lymphocytes % 23.5 % (15.3-44.8); RBC Red Blood Cell Count 3.71 M/uL (3.86-4.86)
[2019-02-02 08:11] VITALS: BP 122/65; TEMP 98
[2019-02-02] MEDS: ENOXAPARIN 40 MG/0.4 ML SQ SCH (08:58)
[2019-02-02] MEDS: ALPRAZOLAM 0.5 MG TABLET PO PRN (08:58)
[2019-02-02] MEDS: HYDROCODONE/APAP 7.5/325 MG TAB PO PRN (08:58)
[2019-02-02] MEDS: GABAPENTIN 300 MG CAP PO SCH (08:58)
[2019-02-02] MEDS: FLUTICASONE 50MCG NASAL SPRAY NAS SCH (08:59)
[2019-02-02] MEDS: CLOTRIMAZOLE 1% CREAM 15 GM TOP SCH (08:59)
[2019-02-02] MEDS: FLUOCINONIDE 0.05% CREAM 30GM TOP PRN (08:59)
[2019-02-02] MEDS: MUPIROCIN 2% OINT 22GM TUBE TOP SCH (08:59)
[2019-02-02] MEDS ORDERED: POTASSIUM 25 MEQ EFFERV TAB PO ONE (09:00)
[2019-02-02] MEDS: DOXYCYCLINE 100 MG CAP PO SCH (09:04)
[2019-02-02 11:19] VITALS: O2SAT 96
--- NOTE | 2019-02-02 17:32 | P.DS ---
Admission Date: 01/29/19 Discharge Date: 02/02/19 Primary Care Provider: Dr. Styles Disposition: ROUTINE DISCHARGE Discharge Condition: GOOD Reason for Admission: Left lower extremity pain, swelling and erythema Consultations: Podiatry - Problems (1) Cellulitis Status: Acute Qualifiers: Site of cellulitis: extremity Site of cellulitis of extremity: lower extremity Laterality: left Qualified Code(s): L03.116 - Cellulitis of left lower limb (2) Fungal infection of foot Status: Chronic Qualifiers: Laterality: bilateral Qualified Code(s): B35.3 - Tinea pedis Brief History of Present Illness: 63-year-old female presented to the emergency room with left lower extremity swelling, pain and erythema. Patient with history of hypertension, hyperlipidemia, depression, chronic pain. Patient also has history of left lower extremity cellulitis with prior skin graft to the area. Patient reported left lower extremity pain, swelling and erythema over the past several days. This has been getting worse. This is similar to prior cellulitis. She has been treating herself with oral antifungal agents. This is not improved. She came to the ER for further evaluation. She denied any fever, chills. No significant nausea or vomiting. In the ER patient evaluated. White count elevated at 14.3, hemoglobin 11.9. Sodium 137, potassium 3.4. GFR greater than 90. Pro calcitonin elevated at 0.93 with a lactic acid that was normal. Left lower extremity Doppler was negative for DVT. Patient was admitted for further evaluation and treatment. When I saw the patient in the ER, she appeared comfortable. Pain improved. Patient had reported some difficulty walking due to the pain to the left lower extremity. Hospital Course: Overall during the hospital stay patient remained stable Patient was initially admitted to the hospital for fungal infection of the left lower extremity. Was found to also have moderate cellulitis of the leg was started on IV antibiotics had marked improvement in her symptoms . Patchy was consulted who recommended patient to be switched over to oral antibiotics along with topical antifungal along with oral antifungal. Patient had marked improvement again and thus was discharged home under stable condition Vital Signs/Physical Exam: Temp Pulse Resp BP Pulse Ox 98.0 F 72 18 122/65 99 02/02/19 08:00 02/02/19 08:00 02/02/19 08:00 02/02/19 08:00 02/02/19 08:00 General: Alert, In no apparent distress HEENT: Atraumatic, PERRLA, EOMI Neck: Supple, JVD not distended Respiratory: Clear to auscultation bilaterally, Normal air movement Cardiovascular: Regular rate/rhythm, Normal S1 S2 Gastrointestinal: Normal bowel sounds, No tenderness Musculoskeletal: No tenderness Integumentary: No rashes Neurological: Normal speech, Normal tone, Normal affect Lymphatics: No axilla or inguinal lymphadenopathy Laboratory Data at Discharge: WBC 5.0 K/uL (4.3-10.9) 02/02/19 05:31 Hgb 11.1 g/dL (12.0-15.0) L 02/02/19 05:31 Hct 33.5 % (36.0-45.0) L 02/02/19 05:31 Plt Count 219 K/uL (152-406) 02/02/19 05:31 PT 12.8 SECONDS (9.5-12.5) H 01/29/19 01:55 INR 1.09 01/29/19 01:55 APTT 34.5 SECONDS (24.3-36.9) 01/29/19 01:55 Sodium 142 mmol/L (136-145) 02/02/19 05:31 Potassium 3.9 mmol/L (3.5-5.1) 02/02/19 05:31 BUN 8 mg/dL (7-18) 02/02/19 05:31 Creatinine 0.59 mg/dL (0.55-1.3) 02/02/19 05:31 Glucose 85 mg/dL (74-106) 02/02/19 05:31 Phosphorus 3.8 mg/dL (2.5-4.9) 02/01/19 05:35 Magnesium 2.1 mg/dL (1.8-2.4) 02/02/19 05:31 Total Bilirubin 0.7 mg/dL (0.2-1.0) 01/29/19 01:55 AST 18 U/L (15-37) 01/29/19 01:55 ALT 23 U/L (12-78) 01/29/19 01:55 Alkaline Phosphatase 122 U/L (45-117) H 01/29/19 01:55 Home Medications: Biotin 5 mg PO DAILY 03/15/12 Calcium Carbonate/Vitamin D3 [Calcium 500 + D Tablet] 1 each PO DAILY 03/15/12 Cyanocobalamin [Vitamin B-12*] 1,000 mcg PO DAILY 03/15/12 [place]-3/Dha/Epa/Fish Oil [Fish Oil 1,000 mg Softgel] 1 each PO DAILY 03/15/12 Alprazolam [Xanax] 1 mg PO BID 01/29/19 Amlodipine [Norvasc*] 5 mg PO DAILY 01/29/19 Betameth Dip 0.05% [Diprosone 0.05% Cream*] 15 appl TOP DAILY 01/29/19 Gabapentin 300 mg PO TID 01/29/19 Lidocaine 5% Patch [Lidoderm 5% Patch*] 1 patch TD DAILY 01/29/19 Simvastatin 20 mg PO BEDTIME 01/29/19 Doxycycline Monohydrate 100 mg PO BID #28 capsule 02/02/19 New Medications: Doxycycline Monohydrate 100 mg PO BID #28 capsule Diet: Regular Activity: Ad juan antonio Followup: Davis Farias JR, DPM [ASSOCIATE-ACTIVE - CAN ADMIT] - 1 Week (call to schedule a follow-up appt )
== END 2019-02-02 11:41 | disposition home or self-care (01) ==
LOC: ER 00:53 → INTOOBSV 03:44 → ERHOLD 03:44 → 4TH 04:11
PROVIDERS: ADMIT Family Medicine; ATTEND Family Medicine
DX: L03.116 Cellulitis of left lower limb (principal); B35.3 Tinea pedis; L30.9 Dermatitis, unspecified; E78.5 Hyperlipidemia, unspecified; I10 Essential (primary) hypertension; F41.8 Other specified anxiety disorders; G89.29 Other chronic pain; Z98.84 Bariatric surgery status; Z79.899 Other long term (current) drug therapy; Z87.891 Personal history of nicotine dependence
CPT/HCPCS: 87040 ×2; 85025 ×5; 80048 ×5; 36415 ×5; 83735 ×4; 84100; 84132; 85610; 82962; 80076; 83605; 85730; 81003; 80202; 84145; 87102; 93971; 97535; 97110 ×2; 97116 ×3; 97162; 97166; 97530 ×2; 96375; 96374; 99285; J1650 ×5; J3370; J7030 ×4; J2405; J0692 ×4; G0378 ×2

== ENCOUNTER 2025-02-13 12:54 | Emergency (ER) | payer OTHER ==
[2025-02-13 13:34] LABS: Absolute Lymphocytes (CBC) 1.1 K/uL (0.7-4.9); Hematocrit 39.3 % (36.0-45.0); Hemoglobin 13.3 g/dL (12.0-15.0); MCH 32.2 pg (27.0-35.0); MCHC 33.9 g/dL (32.0-36.0); MCV 95.1 fL (80-100); MPV 9.5 fL (7.6-11.3); Nucleated RBC Absolute Count 0.0 (0-0); Nucleated Red Blood Cells % 0.1 % (0-0); RBC Red Blood Cell Count 4.14 M/uL (3.86-4.86); White Blood Count 4.80 thou/uL (4.3-10.9)
[2025-02-13 13:55] LABS: ALT/SGPT 37.0 U/L (13-56); AST/SGOT 34.0 U/L (15-37); Albumin 3.4 g/dL (3.4-5.0); Albumin/Globulin Ratio 0.7 (1.1-1.8); Alkaline Phosphatase 127.0 U/L (45-117); Anion Gap 7.2 mEq/L (5.0-15.0); BUN Blood Urea Nitrogen 9.0 mg/dL (7-18); Bilirubin Indirect, Calculated 0.4 mg/dL (0.2-0.8); Globulin 5.0 g/dL (2.3-3.5); Glucose Level 93.0 mg/dL (74-106); Lipase 26.0 U/L (13-75); Magnesium 1.9 mg/dL (1.6-2.4); NT PRO-BNP 98.0 pg/mL (<125); Potassium 3.2 mEq/L (3.5-5.1); Troponin High Sensitivity 5.3 pg/mL (<58.9)
--- NOTE | 2025-02-13 14:08 | RAD REPORT ---
EXAM: Chest Single View HISTORY: 69 years Female COUGH COMPARISON: No prior exams FINDINGS: LUNGS/PLEURA: The lungs are clear. No pleural effusions or pneumothorax. No pulmonary edema. CARDIAC/MEDIASTINUM: The cardiac silhouette is within normal limits. UPPER ABDOMEN: No significant abnormality. BONES: No acute abnormality. LINES/TUBES/OTHER: N/A IMPRESSION: No evidence of acute cardiopulmonary disease.
--- NOTE | 2025-02-13 14:31 | RAD REPORT ---
EXAMINATION: US LOWER EXTREMITY VENOUS DOPPLER BILATERAL CLINICAL INDICATION: Female, 69 years old.Pain;Swelling TECHNIQUE: Complete bilateral duplex sonography of the lower extremity veins was performed. The exami nation included compression for vein patency, color Doppler imaging and flow augmentation in response to distal compression of the distal external iliac, common femoral, femoral, popliteal, april pan, tibial and great saphenous veins. [id number]. COMPARISON: No prior exams FINDINGS: Duplex sonography imaging demonstrates all deep examined to be fully compressible with spontaneous, p hasic and augmented flow bilaterally. IMPRESSION: No evidence of deep venous thrombosis seen in either lower extremity.
[2025-02-13] MEDS ORDERED: NA CHLORIDE 0.9% 500 ML ONE (16:18)
[2025-02-13] MEDS ORDERED: HYDROCODONE/APAP 5/325 MG TAB ONE ×2 (16:43→16:46)
--- NOTE | 2025-02-13 17:20 | EDPHYS ---
Physician Documentation [facility] Name: Sachi Roberts Age: 69 yrs Sex: Female : 1955 Arrival Date: 02/13/2025 Time: 12:54 Bed 23 Private MD: PYEMAN Physician Nathaniel Haskins HPI: 02/13 17:10 This 69 yrs old Black Female presents to ER via Ambulatory with complaints of Leg daylin Swelling, Rash - LEGS, ARMS. 17:10 The patient's rash thought to be caused by Dermatitis. The rash is located on the right daylin leg and left leg. The rash can be described as erythematous. Onset: The symptoms/episode began/occurred 3 day(s) ago. Associated signs and symptoms: Pertinent positives: itching, Pain. Severity of symptoms: At their worst the symptoms were mild in the emergency department the symptoms have improved mildly. Treatment given at home: EPSOM SALTS. The patient has experienced similar episodes in the past, several times. Historical: - Allergies: 13:33 No Known Allergies; dd2 - PMHx: 13:33 Anxiety; Cellulitis; chronic back pain; Hypertension; dd2 - PSHx: 13:33 Gastric Bypass; Lumpectomy of breast; Operative procedure on knee; dd2 - Immunization history:: Adult Immunizations up to date. - Infectious Disease History:: Denies. - Social history:: Smoking status: Patient denies any tobacco usage or history of. - Family history:: not pertinent. ROS: 17:10 Constitutional: Negative for fever, chills, and weight loss, Eyes: Negative for injury, daylin pain, redness, and discharge, ENT: Negative for injury, pain, and discharge, Neck: Negative for injury, pain, and swelling, Cardiovascular: Negative for chest pain, palpitations, and edema, Respiratory: Negative for shortness of breath, cough, wheezing, and pleuritic chest pain, Abdomen/GI: Negative for abdominal pain, nausea, vomiting, diarrhea, and constipation, Back: Negative for injury and pain, : Negative for injury, bleeding, discharge, and swelling, Neuro: Negative for headache, weakness, numbness, tingling, and seizure, Psych: Negative for depression, anxiety, suicide ideation, homicidal ideation, and hallucinations, Allergy/Immunology: Negative for hives, rash, and allergies, Endocrine: Negative for neck swelling, polydipsia, polyuria, polyphagia, and marked weight changes, 17:10 MS/extremity: Positive for pain, rash, 17:10 Skin: Positive for cellulitis, erythema, swelling, of the right leg and left leg, Exam: 17:10 Constitutional: This is a well developed, well nourished patient who is awake, alert, daylin and in no acute distress. Head/Face: Normocephalic, atraumatic. Eyes: Pupils equal round and reactive to light, extra-ocular motions intact. Lids and lashes normal. Conjunctiva and sclera are non-icteric and not injected. Cornea within normal limits. Periorbital areas with no swelling, redness, or edema. ENT: Nares patent. No nasal discharge, no septal abnormalities noted. Tympanic membranes are normal and external auditory canals are clear. Oropharynx with no redness, swelling, or masses, exudates, or evidence of obstruction, uvula midline. Mucous membranes moist. Neck: Trachea midline, no thyromegaly or masses palpated, and no cervical lymphadenopathy. Supple, full range of motion without nuchal rigidity, or vertebral point tenderness. No Meningismus. Chest/axilla: Normal chest wall appearance and motion. Nontender with no deformity. No lesions are appreciated. Cardiovascular: Regular rate and rhythm with a normal S1 and S2. No gallops, murmurs, or rubs. Normal PMI, no JVD. No pulse deficits. Respiratory: Lungs have equal breath sounds bilaterally, clear to auscultation and percussion. No rales, rhonchi or wheezes noted. No increased work of breathing, no retractions or nasal flaring. Abdomen/GI: Soft, non-tender, with normal bowel sounds. No distension or tympany. No guarding or rebound. No evidence of tenderness throughout. Back: No spinal tenderness. No costovertebral tenderness. Full range of motion. Female : Normal external genitalia. Neuro: Awake and alert, GCS 15, oriented to person, place, time, and situation. Cranial nerves II-XII grossly intact. Motor strength 5/5 in all extremities. Sensory grossly intact. Cerebellar exam normal. Normal gait. Psych: Awake, alert, with orientation to person, place and time. Behavior, mood, and affect are within normal limits. 17:10 ECG was reviewed by the Attending Physician. 17:10 Musculoskeletal/extremity: ROM: no acute changes, intact in all extremities, full active range of motion, full passive range of motion, Circulation is intact in all extremities. Sensation intact. Compartment Syndrome exam of affected extremity: is normal. Weight bearing: able to fully bear weight, DVT Exam: negative Homans' sign noted on exam, no appreciated bluish discoloration, no erythema, no increased warmth, pain, swelling, tenderness, Vital Signs: 13:31 BP 136 / 63; Pulse 72; Resp 17; Temp 97.8; Pulse Ox 100% on R/A; Weight 113.4 kg; Pain dd2 7/10; 16:00 BP 141 / 71; Pulse 77; Resp 16; Pulse Ox 98% on R/A; ll1 16:50 BP 159 / 69; Pulse 82; Resp 16; Pulse Ox 96% on R/A; ll1 13:31 Pain Scale: Adult dd2 MDM: 13:11 Medical Screening Exam initiated daylin 17:16 Differential diagnosis: allergic reaction. Data reviewed: vital signs, nurses notes, [facility] lab test result(s), EKG, radiologic studies, plain films. Consideration of Admission/Observation Escalation of care including admission/observation considered. I considered the following discharge prescriptions or medication management in the emergency department Medications were administered in the Emergency Department. See MAR. Independent interpretation of the following test(s) in the Emergency Department EKG: See my EKG interpretation above. Test considered but Not performed: CT: NO CT AB/PEL. Historians other than the Patient: PT WELL INFORMED. Care significantly affected by the following chronic conditions: Hypertension, Obesity, CELLULITIS, CBP. Counseling: I had a detailed discussion with the patient and/or guardian regarding the historical points, exam findings, and any diagnostic results supporting the discharge/admit diagnosis, lab results, radiology results, the need for outpatient follow up, for definitive care, a family practitioner. 02/13 13:13 Order name: Basic Metabolic Panel; Complete Time: 14:51 [facility] 02/13 13:13 Order name: CBC with Diff; Complete Time: 14:51 [facility] 02/13 13:13 Order name: LFT's; Complete Time: 14:51 [facility] 02/13 13:13 Order name: Magnesium; Complete Time: 14:51 [facility] 02/13 13:13 Order name: NT PRO-BNP; Complete Time: 14:51 [facility] 02/13 13:13 Order name: Troponin HS; Complete Time: 14:51 [facility] 02/13 13:13 Order name: Lipase; Complete Time: 14:51 [facility] 02/13 13:13 Order name: XRAY Chest (1 view); Complete Time: 14:51 [facility] 02/13 13:13 Order name: US Extremity Venous W Compression Tam; Complete Time: 14:51 [facility] 02/13 13:13 Order name: EKG; Complete Time: 13:14 [facility] 02/13 13:13 Order name: Cardiac monitoring; Complete Time: 15:18 [facility] 02/13 13:13 Order name: EKG - Nurse/Tech; Complete Time: 14:43 [facility] 02/13 13:13 Order name: IV Saline Lock; Complete Time: 13:30 [facility] 02/13 13:13 Order name: Labs collected and sent; Complete Time: 13:30 [facility] 02/13 13:13 Order name: O2 Per Protocol; Complete Time: 15:18 [facility] 02/13 13:13 Order name: O2 Sat Monitoring; Complete Time: 15:18 [facility] 02/13 17:10 Order name: PO challenge: JUICE; Complete Time: 17:18 [facility] EC:10 Rate is 70 beats/min. Rhythm is regular. QRS [place] is Normal. IN interval is normal. QRS daylin interval is normal. QT interval is normal. T waves are Normal. No ST changes noted. Clinical impression: NSR w/ Non-specific ST/T Changes and No evidence of ischemia. Interpreted by me. Reviewed by me. Administered Medications: 16:22 Drug: NS 0.9% IV 500 ml 500 ml IV at 100 ml/hr once Volume: 500 ml; Route: IV; Rate: ll1 100 ml/hr; Site: left forearm; 16:50 Drug: HYDROcodone-acetaminophen PO 5 mg-325 mg 1 tabs PO once Route: PO; ll1 17:42 Drug: Famotidine IVP 20 mg IVP once; dilute with 10 mL 0.9% NaCl; give over 2 minutes ll1 Route: IVP; Site: right forearm; 17:42 Drug: Famotidine PO 20 mg PO once Route: PO; ll1 17:42 Drug: diphenhydrAMINE IVP 25 mg IVP once Route: IVP; Site: left forearm; ll1 17:42 Drug: Trimethoprim-Sulfamethoxazole PO (160 mg-800 mg (DS) 1 tablet PO once Route: PO; ll1 17:42 Drug: ceFAZolin IVPB 1 grams IVPB once Route: IVPB; Site: left forearm; ll1 17:42 Drug: Cephalexin PO 500 mg PO once Route: PO; ll1 17:42 Drug: Mupirocin Topical Ointment 2 % 1 application Topical once Route: Topical; Site: ll1 wound; Disposition Summary: 02/13/25 17:19 Discharge Ordered Notes: Location: Home daylin Problem: new daylin Symptoms: have improved daylin Condition: Stable daylin Diagnosis - Hypokalemia daylin - Cellulitis and acute lymphangitis of other parts of limb daylin - Unspecified contact dermatitis, unspecified cause daylin - Rash and other nonspecific skin eruption daylin Followup: daylin - With: Private Physician - When: 2 - 3 days - Reason: Recheck today's complaints, Continuance of care, Re-evaluation by your physician Discharge Instructions: - Discharge Summary Sheet daylin - Cellulitis, Adult daylin - Contact Dermatitis daylin - Potassium Content of Foods daylin - Edema daylin - Cellulitis, Adult, [id number] daylin - Lymphedema daylin - Edema, [id number] dayiln - Hypokalemia [facility] Forms: - Medication Reconciliation Form [facility] - Antibiotic Education daylin - Prescription Opioid Use [facility] - Patient Portal Instructions [facility] - Leadership Thank You Letter [facility] Prescriptions: - Centany 2 % Topical ointment - apply 1 application TOPICAL route 3 times per day; 30 gram; Refills: 0, Product [facility] Selection Permitted - Benadryl 25 mg Oral Capsule - take 1 capsule ORAL route every 6 hours As needed; 30 tablet; Refills: 0, [facility] Product Selection Permitted - Cephalexin 500 mg Oral Capsule - take 1 capsule ORAL route every 6 hours for 10 days; 40 capsule; Refills: 0, [facility] Product Selection Permitted - Pepcid 20 mg Oral Tablet - take 1 tablet ORAL route every 12 hours for 10 days; 20 tablet; Refills: 0, [facility] Product Selection Permitted - Bactrim DS 800-160 mg Oral Tablet - take 1 tablet ORAL route every 12 hours for 10 days; 20 tablet; Refills: 0, [facility] Product Selection Permitted Signatures: Dispatcher [employer] Nathaniel Larsen MD MD cha Lewis, Lynsay RN RN ll1 KANIKA SALMON RN RN dd2
--- NOTE | 2025-02-13 17:20 | ER ---
Nurse's Notes [facility] Name: Sachi Roberts Age: 69 yrs Sex: Female : 1955 Arrival Date: 02/13/2025 Time: 12:54 Bed 23 Private MD: Diagnosis: Hypokalemia;Cellulitis and acute lymphangitis of other parts of limb;Unspecified contact dermatitis, unspecified cause;Rash and other nonspecific skin eruption Presentation: 02/13 13:31 Chief complaint: Patient states: SWELLING IN BOTH LEGS, RASH ON ANKLES X4 WEEKS AND dd2 RASH ON BOTH WRIST AND ARMS 2-3 DAYS. PT REPORTS PAIN IN BOTH LEGS. Coronavirus screen: At this time, the client does not indicate any symptoms associated with coronavirus-19. Ebola Screen: No symptoms or risks identified at this time. Initial Sepsis Screen: Does the patient meet any 2 criteria? No. Patient's initial sepsis screen is negative. Does the patient have a suspected source of infection? No. Patient's initial sepsis screen is negative. Risk Assessment: Do you want to hurt yourself or someone else? Patient reports no desire to harm self or others. Onset of symptoms is unknown. 13:31 Method Of Arrival: Ambulatory dd2 13:31 Acuity: DIDIER 2 dd2 Triage Assessment: 13:33 General: Appears in no apparent distress. uncomfortable, Behavior is calm, cooperative, dd2 appropriate for age. Pain: Complains of pain in right leg and left leg. Musculoskeletal: Swelling present in right leg and left leg. Historical: - Allergies: 13:33 No Known Allergies; dd2 - PMHx: 13:33 Anxiety; Cellulitis; chronic back pain; Hypertension; dd2 - PSHx: 13:33 Gastric Bypass; Lumpectomy of breast; Operative procedure on knee; dd2 - Immunization history:: Adult Immunizations up to date. - Infectious Disease History:: Denies. - Social history:: Smoking status: Patient denies any tobacco usage or history of. - Family history:: not pertinent. Assessment: 14:31 Reassessment: Patient and/or family updated on plan of care and expected duration. Pain ll1 level reassessed. 15:30 General: Appears in no apparent distress. uncomfortable, Behavior is calm, cooperative, ll1 appropriate for age. Pain: Complains of pain in right Achilles, right leg and left leg Pain does not radiate. Pain currently is 7 out of 10 on a pain scale. Neuro: Level of Consciousness is awake, alert, obeys commands, Oriented to person, place, time, situation. Cardiovascular: Patient's skin is warm and dry. Respiratory: Airway is patent Respiratory effort is even, unlabored, Respiratory pattern is regular, symmetrical. Derm: Skin is intact, Skin is dry, Skin is normal, Skin temperature is warm Rash noted that is Pt reports a rash that appears below the knee and the right heel. Reports it has now spread to right wrist. 16:15 Reassessment: attempted to have Dr. hart to the bedside to discuss results and plan of ll1 care with pt. 16:50 Reassessment: Patient appears in no apparent distress at this time. Patient and/or ll1 family updated on plan of care and expected duration. Pain level reassessed. Patient is alert, oriented x 3, equal unlabored respirations, skin warm/dry/pink. 16:53 Reassessment: Attempted again to have Dr. hart speak with pt about test results and ll1 plan of care. Pt verbalizing frustration with situation. Vital Signs: 13:31 BP 136 / 63; Pulse 72; Resp 17; Temp 97.8; Pulse Ox 100% on R/A; Weight 113.4 kg; Pain dd2 710; 16:00 BP 141 / 71; Pulse 77; Resp 16; Pulse Ox 98% on R/A; ll1 16:50 BP 159 / 69; Pulse 82; Resp 16; Pulse Ox 96% on R/A; ll1 13:31 Pain Scale: Adult dd2 ED Course: 13:06 Patient arrived in ED. cj3 13:11 Nathaniel Haskins MD is Attending Physician. daylin 13:30 Lipase Sent. bc6 13:30 Basic Metabolic Panel Sent. bc6 13:30 CBC with Diff Sent. bc6 13:30 LFT's Sent. bc6 13:30 Magnesium Sent. bc6 13:30 NT PRO-BNP Sent. bc6 13:30 Troponin HS Sent. bc6 13:30 Initial lab(s) drawn, by me, sent to lab. Inserted saline lock: 24 gauge in left bc6 forearm, using aseptic technique. Blood collected. Flushed with 10 mL NS. 13:33 Triage completed. dd2 13:33 Arm band placed on right wrist. dd2 13:41 XRAY Chest (1 view) In Process Unspecified. EDMS 14:08 US Extremity Venous W Compression Tam In Process Unspecified. EDMS 14:30 Patient placed in an exam room, on a stretcher. ll1 18:33 Gorge Moreland, RN is Primary Nurse. jb4 Administered Medications: 16:22 Drug: NS 0.9% IV 500 ml 500 ml IV at 100 ml/hr once Volume: 500 ml; Route: IV; Rate: ll1 100 ml/hr; Site: left forearm; 16:50 Drug: HYDROcodone-acetaminophen PO 5 mg-325 mg 1 tabs PO once Route: PO; ll1 17:42 Drug: Famotidine IVP 20 mg IVP once; dilute with 10 mL 0.9% NaCl; give over 2 minutes ll1 Route: IVP; Site: right forearm; 17:42 Drug: Famotidine PO 20 mg PO once Route: PO; ll1 17:42 Drug: diphenhydrAMINE IVP 25 mg IVP once Route: IVP; Site: left forearm; ll1 17:42 Drug: Trimethoprim-Sulfamethoxazole PO (160 mg-800 mg (DS) 1 tablet PO once Route: PO; ll1 17:42 Drug: ceFAZolin IVPB 1 grams IVPB once Route: IVPB; Site: left forearm; ll1 17:42 Drug: Cephalexin PO 500 mg PO once Route: PO; ll1 17:42 Drug: Mupirocin Topical Ointment 2 % 1 application Topical once Route: Topical; Site: ll1 wound; Outcome: 17:19 Discharge ordered by MD. mao 18:33 Patient left the ED. jb4 Signatures: Dispatcher [employer]DA[employer] Nathaniel Haskins MD MD cha Bryson, James, RN RN jb4 Raoul Armstrong RN RN ll1 Salena Mcghee DIANA, RN RN dd2 Shasta Barton [email or web address] Corrections: (The following items were deleted from the chart) 16:22 16:22 NS 0.9% IV 500 ml 500 ml IV at 100 ml/hr in right antecubital ll1 ll1 16:52 15:30 Reassessment: Patient appears in no apparent distress at this time. Patient ll1 and/or family updated on plan of care and expected duration. Pain level reassessed. Patient is alert, oriented x 3, equal unlabored respirations, skin warm/dry/pink. ll1
[2025-02-13] MEDS ORDERED: SMZ./TMP. 800/160 MG TABLET ONE (17:22)
[2025-02-13] MEDS ORDERED: FAMOTIDINE 20 MG TAB ONE (17:22)
[2025-02-13] MEDS ORDERED: CEPHALEXIN 250 MG CAP ONE (17:22)
[2025-02-13] MEDS ORDERED: DIPHENHYDRAMINE 50 MG/ML VIAL ONE (17:23)
[2025-02-13] MEDS ORDERED: MUPIROCIN 2% OINT 22GM TUBE TOP ONE (17:23)
[2025-02-13] MEDS ORDERED: CEFAZOLIN SODIUM 1 GM/VIAL ONE (17:23)
[2025-02-13] MEDS ORDERED: FAMOTIDINE 20 MG/2 ML VIAL IV ONE (17:24)
[2025-02-13] MEDS ORDERED: NA CHLORIDE 0.9% 50 ML ONE (17:25)
[2025-02-13 19:24] VITALS: TEMP 97.8
[2025-02-13 19:27] VITALS: BP 159/69; O2SAT 96
== END 2025-02-13 18:33 | disposition home or self-care (01) ==
LOC: ER 12:54
DX: L03.116 Cellulitis of left lower limb (principal); L03.115 Cellulitis of right lower limb; L03.126 Acute lymphangitis of left lower limb; L03.125 Acute lymphangitis of right lower limb; L25.9 Unspecified contact dermatitis, unspecified cause; E87.6 Hypokalemia
CPT/HCPCS: 93005; 85025; 80048; 36415; 83735; 80076; 84484; 83690; 83880; 71045; 93970; 99284; J1200; J7040; J0690